=== PATIENT | female | born 1960 | race Caucasian/White ===

== ENCOUNTER 2020-03-10 15:36 | Emergency (ER) | payer MEDICARE, MEDICAID, SELFPAY ==
--- NOTE | ~2020-03-10 | XR_ITS ---
EXAMINATION: XR chest 2V DATE: 03/10/2020 16:35 INDICATION: Cough and shortness of breath. TECHNIQUE: Frontal and lateral views of the chest were obtained. COMPARISON: Chest 2 views 07/11/2018, chest CT 07/11/2018 FINDINGS: The chest demonstrates clear lungs without pneumonia, pleural effusion, or pneumothorax. Th e heart size is normal. IMPRESSION: 1. No acute cardiopulmonary disease. Reviewed, dictated and finalized at location A.
[2020-03-10 15:41] VITALS: BP 145/74; PULSE 77; RESP 20; TEMP 37.2; O2SAT 98
--- NOTE | 2020-03-10 15:48 | ECG_ITS ---
Measurements Intervals [place] Rate: 73 P: 17 WY: 163 QRS: -29 QRSD: 92 T: 0 QT: 394 QTc: 435 Interpretive Statements SINUS RHYTHM DELAYED PRECORDIAL R/S TRANSITION BORDERLINE ST-T WAVE ABNORMALITY- ANT/INF LEADS BORDERLINE ECG Electronically Signed On 03-10-2020 16:52:05 CDT by Crow Gonsales D.O.
[2020-03-10 16:11] LABS: Basophils Percent Auto 0.5 % (0.2-1.2); Eosinophils Absolute Auto 0.2 K/mm3 (0-0.3); Eosinophils Percent Auto 3.1 % (0-4.4); Hematocrit 43.3 % (37.0-47.0); Hemoglobin 15.1 g/dL (12.0-15.0); Immature Granulocyte Absolute 0.03 K/mm3 (0.00-0.031); Immature Granulocyte Percent A 0.4 % (0-0.5); Lymphocytes Absolute Auto 2.25 K/mm3 (0.9-3.2); Lymphocytes Percent Auto 30.2 % (18.3-44.2); Mean Corpuscular HGB Conc 34.9 g/dl (32-36); Mean Corpuscular Hemoglobin 31.9 pg (26-34); Mean Corpuscular Volume 91.4 fl (80-100); Mean Platelet Volume 10.5 fl (7.4-10.4); Monocytes Absolute Auto 0.5 K/mm3 (0.1-0.6); Monocytes Percent Auto 6.7 % (2.6-8.5); Neutrophils Absolute Auto 4.4 K/mm3 (1.3-6.7); Neutrophils Percent Auto 59.1 % (45.5-73.1); Platelet Count Result 226 k/mm3 (150-375); Red Blood Count 4.74 M/mm3 (4.2-5.4); Red Cell Distribution Width 12.5 % (11.5-14.5); White Blood Count 7.5 K/mm3 (4.5-10.0)
[2020-03-10 16:22] VITALS: BP 143/90; PULSE 74; RESP 20; O2SAT 97
[2020-03-10 16:23] LABS: Anion Gap 7 mmol/L (8-16); Blood Urea Nitrogen 17 mg/dL (7-17); Calcium 9.6 mg/dL (8.4-10.2); Carbon Dioxide 27 mmol/L (22-30); Chloride 102 mmol/L (98-107); Estimated CRCL calculation 88 ml/min; Estimated Glomerular Filt Rate > 60; Glucose 167 mg/dL (65-105); Potassium 4.2 mmol/L (3.4-5.0); Sodium 136 mmol/L (137-145)
[2020-03-10 16:24] VITALS: BP 140/90; PULSE 78; RESP 18; O2SAT 98
[2020-03-10] MEDS: IPRATROPIUM BR 0.02% INH SOLN 0.5 MG/2.5 ML VIAL 1 MG INHALATION (17:01)
[2020-03-10 17:02] VITALS: PULSE 66; RESP 16; O2SAT 97
[2020-03-10] MEDS: ALBUTEROL SULFATE NEB 2.5 MG/3 ML INH 5 MG INHALATION (17:02)
[2020-03-10] MEDS: AZITHROMYCIN 250 MG TABLET 500 MG PO (17:21)
--- NOTE | 2020-03-10 17:25 | PC.NURSE ---
Patient given decadron 10 mg IM verbal order Dr. Frederick at this time.
--- NOTE | 2020-03-10 17:58 | ED.SOB ---
HPI - SOB/Dyspnea General Chief Complaint: Shortness of Breath/Dyspnea Stated Complaint: cough, short of breath x 1 month Time Seen by Provider: 03/10/20 16:21 Related Data Allergies Allergy/AdvReac Type Severity Reaction Status Date / Time Benzodiazepines Allergy Mild RED FACE Verified 07/11/18 12:36 caffeine Allergy Mild RED FACE Verified 07/11/18 12:36 chlordiazepoxide Allergy Mild RED FACE Verified 07/11/18 12:36 clidinium Allergy Mild RED FACE Verified 07/11/18 12:36 diphenhydramine AdvReac Other Verified 03/10/20 16:29 [From Benadryl] CHLORDIAZEPOXIDE HCL Allergy Unknown Other Uncoded 03/10/20 16:29 Course Vital Signs Vital signs: Vital Signs Temperature 37.2 C 03/10/20 15:41 Pulse Rate 77 03/10/20 15:41 Respiratory Rate 20 03/10/20 15:41 Blood Pressure 145/74 H 03/10/20 15:41 Pulse Oximetry 98 03/10/20 15:41 Temperature 37.2 C 03/10/20 15:41 Pulse Rate 66 03/10/20 17:02 Respiratory Rate 16 03/10/20 17:02 Blood Pressure 140/90 03/10/20 16:24 Pulse Oximetry 97 03/10/20 17:02 MDM - SOB/Dyspnea Lab Data Result diagrams: 03/10/20 15:53 03/10/20 15:53 Labs: Lab Results 03/10/20 03/10/20 Range/Units 15:53 15:53 WBC 7.5 (4.5-10.0) K/mm3 RBC 4.74 (4.2-5.4) M/mm3 Hgb 15.1 H (12.0-15.0) g/dL Hct 43.3 (37.0-47.0) % MCV 91.4 (80-100) fl MCH 31.9 (26-34) pg MCHC 34.9 (32-36) g/dl RDW 12.5 (11.5-14.5) % Plt Count 226 (150-375) k/mm3 MPV 10.5 H (7.4-10.4) fl Immature Gran % (Auto) 0.4 (0-0.5) % Neut % (Auto) 59.1 (45.5-73.1) % Lymph % (Auto) 30.2 (18.3-44.2) % Clarke % (Auto) 6.7 (2.6-8.5) % Eos % (Auto) 3.1 (0-4.4) % Baso % (Auto) 0.5 (0.2-1.2) % Lymph # (Auto) 2.25 (0.9-3.2) K/mm3 Clarke # (Auto) 0.5 (0.1-0.6) K/mm3 Eos # (Auto) 0.2 (0-0.3) K/mm3 Baso # (Auto) 0.0 (0.0-0.1) K/mm3 Abs Immat Gran (auto) 0.03 (0.00-0.031) K/mm3 Absolute Neuts (auto) 4.4 (1.3-6.7) K/mm3 Absolute Nucleated RBC 0.0 (0.0-0.012) K/mm3 Nucleated RBC % 0.0 (0.0-0.2) % Sodium 136 L (137-145) mmol/L Potassium 4.2 (3.4-5.0) mmol/L Chloride 102 (98-107) mmol/L Carbon Dioxide 27 (22-30) mmol/L Anion Gap 7 L (8-16) mmol/L BUN 17 (7-17) mg/dL Creatinine 0.70 (0.7-1.0) mg/dL Estim Creat Clear Calc 88 ml/min Estimated GFR > 60 (59 - ) Glucose 167 H (65-105) mg/dL Calcium 9.6 (8.4-10.2) mg/dL Discharge Plan Discharge Clinical Impression: Bronchitis, COPD (chronic obstructive pulmonary disease) Patient Disposition: Home, Self-Care Condition: Stable Instructions: Antibiotic Form, COPD (Chronic Obstructive Pulmonary Disease) (ED), Chronic Bronchitis (ED) Prescriptions: New albuterol sulfate 90 mcg/actuation HFA aerosol inhaler 2 puff INHALATION QID PRN (Reason: shortness of breath or wheezing) Qty: 8.5 RF: 0 azithromycin 250 mg tablet See Rx Instructions .ROUTE .COMPLEX Qty: 6 RF: 0 prednisone 20 mg tablet 20 mg PO BID Qty: 10 RF: 0 Follow-up/Referrals: Danae Warren MD [Physician] - (if a primary care doctor is needed) PHYSICIAN NOT ON STAFF,NONSTAFF [Primary Care Provider] -
[2020-03-10 18:13] VITALS: PULSE 82; RESP 18
[2020-03-10 18:15] VITALS: BP 134/69; PULSE 76; RESP 16; O2SAT 98
== END 2020-03-10 18:18 | disposition home or self-care (01) ==
PROVIDERS: Emergency Medicine; Emergency Provider Emergency Medicine
DX: J40 Bronchitis, not specified as acute or chronic (principal); J44.9 Chronic obstructive pulmonary disease, unspecified
CPT/HCPCS: 36415; 71046; 80048; 85025; 93005; 96372; 99284; A9270

== ENCOUNTER 2020-04-05 16:40 | Emergency (ER) | payer MEDICARE, MEDICAID, SELFPAY ==
[2020-04-05 17:26] VITALS: BP 146/89; PULSE 76; RESP 18; TEMP 36.6; O2SAT 98
[2020-04-05 17:44] LABS: Basophils Absolute Auto 0.1 K/mm3 (0.0-0.1); Basophils Percent Auto 0.9 % (0.2-1.2); Eosinophils Absolute Auto 0.2 K/mm3 (0-0.3); Eosinophils Percent Auto 2.2 % (0-4.4); Hematocrit 41.4 % (37.0-47.0); Hemoglobin 14.4 g/dL (12.0-15.0); Immature Granulocyte Absolute 0.01 K/mm3 (0.00-0.031); Immature Granulocyte Percent A 0.1 % (0-0.5); Lymphocytes Absolute Auto 2.17 K/mm3 (0.9-3.2); Lymphocytes Percent Auto 32.3 % (18.3-44.2); Mean Corpuscular HGB Conc 34.8 g/dl (32-36); Mean Corpuscular Hemoglobin 32.8 pg (26-34); Mean Corpuscular Volume 94.3 fl (80-100); Mean Platelet Volume 10.4 fl (7.4-10.4); Monocytes Absolute Auto 0.4 K/mm3 (0.1-0.6); Monocytes Percent Auto 6.1 % (2.6-8.5); Neutrophils Absolute Auto 3.9 K/mm3 (1.3-6.7); Neutrophils Percent Auto 58.4 % (45.5-73.1); Platelet Count Result 200 k/mm3 (150-375); Red Blood Count 4.39 M/mm3 (4.2-5.4); Red Cell Distribution Width 12.7 % (11.5-14.5); White Blood Count 6.7 K/mm3 (4.5-10.0)
[2020-04-05 17:55] LABS: Alanine Aminotransferase 28 U/L (4-35); Albumin Level 3.8 g/dL (3.5-5.1); Alkaline Phosphatase 88 U/L (38-126); Anion Gap 8 mmol/L (8-16); Aspartate Amino Transferase 22 U/L (14-36); Bilirubin,Total 0.7 mg/dL (0.2-1.3); Blood Urea Nitrogen 17 mg/dL (7-17); Calcium 9.4 mg/dL (8.4-10.2); Carbon Dioxide 26 mmol/L (22-30); Chloride 102 mmol/L (98-107); Estimated CRCL calculation 85 ml/min; Estimated Glomerular Filt Rate > 60; Glucose 280 mg/dL (65-105); Lipase 178 U/L (23-300); Potassium 4.4 mmol/L (3.4-5.0); Sodium 136 mmol/L (137-145)
[2020-04-05 18:38] LABS: Add Urine Microscopic? YES; Appearance Urine Cloudy (Clear); Bilirubin Urine Negative (Negative); Blood Urine 2+ (Negative); Color Urine Yellow (Yellow); Glucose Urine UA 3+ mg/dL (Negative); Ketones Urine Negative (Negative); Leukocyte Esterase Ur 3+ LEU/UL (Negative); Nitrate Urine Negative (Negative); Protein Urine 1+ mg/dL (Negative); RBC Urine >75 /hpf (0-2); Specific Grav Ur 1.028 (1.001-1.035); Squamous Epithelial Cell Urine Few /hpf (Few); Urobilinogen Urine Negative mg/dL (<2.0); WBC Clumps Urine Present /HPF; WBC Urine >75 /hpf
--- NOTE | 2020-04-05 19:55 | ED.NAVMDI ---
HPI - Nausea/Vomiting/Diarrhea General Chief complaint: Nausea/Vomiting/Diarrhea Stated complaint: diarrhea Time Seen by Provider: 04/05/20 19:53 History of Present Illness HPI Narrative: 60 yo female presents to the ED from home with multiple complaints. The primary thing that motivated her to come in today is a bug bite to her upper chest that she recieved yesterday. Since that time swelling moved up the fron of her chest to her neck and she began to experience tightness in her throat. This has begun to decrease somewhat at this time. Additionally she reports diarrhea for the past week. No dark or bloddy stools, abdominal pain, nausea, fever. She also reports that she has an ankle wound that she sustained over 2 weeks ago, which she gfeels is getitng worse. Related Data Allergies Allergy/AdvReac Type Severity Reaction Status Date / Time Benzodiazepines Allergy Mild RED FACE Verified 07/11/18 12:36 caffeine Allergy Mild RED FACE Verified 07/11/18 12:36 chlordiazepoxide Allergy Mild RED FACE Verified 07/11/18 12:36 clidinium Allergy Mild RED FACE Verified 07/11/18 12:36 diphenhydramine AdvReac Other Verified 03/10/20 16:29 [From Benadryl] CHLORDIAZEPOXIDE HCL Allergy Unknown Other Uncoded 03/10/20 16:29 Review of Systems Review of Systems: All systems reviewed & are unremarkable except as noted in HPI and below Constitutional: Constitutional: Denies chills and Denies fever(s) ENT: Denies dizziness and Denies sore throat Cardiovascular: Cardiovascular: Denies chest pain Respiratory: Respiratory: Denies dyspnea Gastrointestinal: Gastrointestinal: Denies abdominal pain, Reports diarrhea, Denies nausea and Denies vomiting Genitourinary: Genitourinary: Denies dysuria Integumentary/Breasts: Skin/Breast: Reports rash and Reports skin ulcer Neurologic: Denies weakness PMFSH Past Medical History Medical History Diabetes mellitus Social History Social History Gender identity (if verbalized by the patient): Female Exam Const: General: no acute distress and alert Nutritional Appearance: obese Orientation/consciousness: patient oriented x3 HENMT: Head: normal to inspection Neck: Other: Mild erythema and indration extending from the upper chest to the level of the thyroid Chest: Chest palpation & inspection: no tenderness Other: erythema and induration of the upper chest with punctate wound Resp: Effort & Inspection: normal respiratory effort Auscultation: clear to auscultation bilaterally, no rales, no rhonchi and no wheezes Cardio: Jugular venous distension: no JVD Rate: regular rate Rhythm: regular rhythm Heart sounds: no murmurs GI: Inspection: non-distended GI Palp: Yes Soft to palpation and No Tenderness to palpation present (GI) Skin: Other: small ulcer to ankle with minimal surrounding erythema Neuro: General: patient oriented x3 and moves all extremities Speech: normal speech Extrem: General: no edema Psych: Appearance: well kempt Affect: normal affect Course Vital Signs Vital signs: Vital Signs Temperature 36.6 C 04/05/20 17:26 Pulse Rate 76 04/05/20 17:26 Respiratory Rate 18 04/05/20 17:26 Blood Pressure 146/89 H 04/05/20 17:26 Pulse Oximetry 98 04/05/20 17:26 Temperature 36.6 C 04/05/20 17:26 Pulse Rate 74 04/05/20 20:49 Respiratory Rate 18 04/05/20 20:49 Blood Pressure 147/81 H 04/05/20 20:49 Pulse Oximetry 97 04/05/20 20:49 MDM - Nausea/Vomiting/Diarrhea MDM Narrative Medical decision making narrative: She appears to have an allergic reaction to an insect bite or sting to the chest. I do not want to put her on steroids due to poorly controlled DM. Her symptoms are improving so I do not believe she is any danger at this time. . I will provide a short course of antihistamine. UA concerning for infection. She also has a nonhealing
[2020-04-05] MEDS: NITROFURANTOIN MONOHYD MACROCR 100 MG CAP PO (20:24)
[2020-04-05] MEDS: CEPHALEXIN 500 MG CAPSULE PO (20:24)
[2020-04-05] MEDS: LORATADINE 10 MG TABLET PO (20:25)
[2020-04-05] MEDS: LOPERAMIDE HCL 2 MG CAPSULE 4 MG PO (20:43)
[2020-04-05 20:49] VITALS: BP 147/81; PULSE 74; RESP 18; O2SAT 97
== END 2020-04-05 20:55 | disposition home or self-care (01) ==
PROVIDERS: General Practice; Emergency Provider Emergency Medicine
DX: T63.481A Toxic effect of venom of other arthropod, accidental (unintentional), initial encounter (principal); N39.0 Urinary tract infection, site not specified; S90.512A Abrasion, left ankle, initial encounter; R19.7 Diarrhea, unspecified; E11.9 Type 2 diabetes mellitus without complications; X58.XXXA Exposure to other specified factors, initial encounter
CPT/HCPCS: 36415; 80053; 81001; 83690; 85025; 87086; 87088; 99283; A9270

== ENCOUNTER 2020-08-18 10:48 | Emergency (ER) | payer MEDICARE, MEDICAID, SELFPAY ==
--- NOTE | ~2020-08-18 | XR_ITS ---
EXAMINATION: XR hand RT min 3V INDICATION: Right hand pain, initial encounter TECHNIQUE: Three views of the right hand are obtained. COMPARISON: None available FINDINGS: There is deformity of the second distal phalanx which has a chronic appearance. No definite acute osseous abnormality is identified. There is mild osteoarthritis in multiple interphalangeal mariluz ints. There is dorsal soft tissue swelling of the hand overlying the metacarpals. IMPRESSION: 1. No acute osseous abnormality. Deformity of the second distal phalanx likely reflects prior trauma. Clinically correlate. Reviewed, dictated and finalized at location A. IC WORKS INSPECTOR
--- NOTE | ~2020-08-18 | XR_ITS ---
EXAMINATION: XR ribs RT 2V w CXR 2V INDICATION: Right chest pain TECHNIQUE: Frontal and lateral views of the chest and 3 views of the right ribs were obtained. COMPARISON: 03/10/2020 FINDINGS: The lungs are free of acute opacities. There is no pleural effusion or pneumothorax. The ca rdiomediastinal silhouette is normal. There is mild thoracic spondylosis. There appear to be nondispl aced fractures at the lateral aspects of the right eighth and ninth ribs. IMPRESSION: 1. Possible nondisplaced fractures of the right eighth and ninth ribs. 2. No acute cardiopulmonary abnormality. Reviewed, dictated and finalized at location A. IFIED RESIDENTIAL MEDICATION AIDE
--- NOTE | ~2020-08-18 | XR_ITS ---
EXAMINATION: XR ankle RT min 3V INDICATION: Right ankle pain, initial encounter TECHNIQUE: Four views of the right ankle are obtained. COMPARISON: None available FINDINGS: There is soft tissue swelling of the ankle. Heterotopic ossification is seen medial to the lateral malleolus. Bone alignment is normal. No definite acute fracture is identified. A plantar calc aneal enthesophyte is noted. IMPRESSION: 1. Findings suggestive of prior injury to the lateral malleolus without evidence of acute injury. Reviewed, dictated and finalized at location A. PROCESS MILLER IMPRESSION: 1. Findings suggestive of prior injury to the lateral malleolus without evidenc e of acute injury.
[2020-08-18 10:51] VITALS: BP 140/49; PULSE 71; RESP 18; TEMP 36.7; O2SAT 98
--- NOTE | 2020-08-18 11:21 | ED.FALL ---
HPI - Fall General Chief Complaint: Fall Stated Complaint: right foot pain, right arm pain. fall Time Seen by Provider: 08/18/20 10:56 Source: patient Mode of arrival: ambulatory Limitations: no limitations History of Present Illness HPI Narrative: This is a 60-year-old female that presents the emergency department after a fall one week ago. Reports she slipped and fell on the ice. Reports landing on her right side. Reports pain in her right hand, right ribs, and right ankle. Pain is worse with movement and relieved with rest. Denies hitting her head, loss of consciousness, weakness, or numbness. Related Data Allergies Allergy/AdvReac Type Severity Reaction Status Date / Time Benzodiazepines Allergy Mild RED FACE Verified 08/18/20 11:02 caffeine Allergy Mild RED FACE Verified 08/18/20 11:02 chlordiazepoxide Allergy Mild RED FACE Verified 08/18/20 11:02 clidinium Allergy Mild RED FACE Verified 08/18/20 11:02 diphenhydramine AdvReac Other Verified 08/18/20 11:02 [From Benadryl] CHLORDIAZEPOXIDE HCL Allergy Unknown Other Uncoded 03/10/20 16:29 Review of Systems Review of Systems: Narrative: CONSTITUTIONAL: Denies fever CARDIOVASCULAR: Reports rib pain RESPIRATORY: Denies dyspnea. MUSCULOSKELETAL: Reports joint pain, and myalgia. NEUROLOGIC: Denies numbness, or weakness. All systems reviewed & are unremarkable except as noted in HPI and below PMFSH Past Medical History Medical History (Updated 08/18/20 @ 12:19 by Jessica Quiroga PA-C) Diabetes mellitus History of hypertension Social History Social History Gender identity (if verbalized by the patient): Female Exam Narrative: Exam Narrative: GENERAL: Well-appearing, well-nourished, and in no acute distress. HEAD: Normocephalic, atraumatic. EYES: PERRLA and EOMI. ENT: Nares clear, no rhinorrhea or epistaxis. Mucous membranes moist. Oropharynx without tonsillar hypertrophy exudate or other lesions. Bilateral TMs pearly sevilla non-bulging NECK: Supple. No adenopathy or masses. No midline cervical spine tenderness CHEST: Clear to auscultation. No respiratory distress. No wheezes rales or rhonchi. Tender to palpation of right lateral, lower chest wall HEART: Regular rate and rhythm. No murmur heard. Normal peripheral pulses. BACK: No midline thoracic or lumbar spine tenderness EXTREMITIES: Normal range of motion. No edema or obvious deformity. SKIN: Warm, dry, no rash. NEURO: No focal deficits. Alert and oriented x3. Cranial nerves II through XII grossly intact PSYCH: Normal mood and affect Course Vital Signs Vital signs: Vital Signs Temperature 98.1 F 08/18/20 10:51 Pulse Rate 71 08/18/20 10:51 Respiratory Rate 18 08/18/20 10:51 Blood Pressure 140/49 L 08/18/20 10:51 Pulse Oximetry 98 08/18/20 10:51 Temperature 98.1 F 08/18/20 10:51 Pulse Rate 71 08/18/20 10:51 Respiratory Rate 18 08/18/20 10:51 Blood Pressure 140/49 L 08/18/20 10:51 Pulse Oximetry 98 08/18/20 10:51 MDM - Fall MDM Narrative Medical decision making narrative: Patient presents the emergency department for right rib right hand, and right ankle pain after a fall a week ago. Patient is neurologically intact. Vitals stable. Right rib/chest x-ray shows nondisplaced fractures of the eighth and ninth ribs. Right hand and ankle x-rays show findings consistent with previous injuries. No acute osseous abnormalities. Patient was updated on case findings. Given incentive spirometer. Instructed on care of rib fracture. She is to follow-up with primary care doctor. She was given warnings to return to the ER Imaging Data Radiologist's impression: ITS Impressions Ribs w/Chest X-Ray 08/18/20 11:37 IMPRESSION: 1. Possible nondisplaced fractures of the right eighth and ninth ribs. 2. No acute cardiopulmonary abnormality. Hand X-Ray 08/18/20 11:44 IMPRESSION: 1. No acute osseous abnormality. Deformity
[2020-08-18] MEDS: IBUPROFEN 600 MG TABLET PO (11:37)
[2020-08-18 12:42] VITALS: BP 151/90; PULSE 60; RESP 18; TEMP 36.3; O2SAT 98
== END 2020-08-18 12:45 | disposition home or self-care (01) ==
PROVIDERS: Emergency Provider Emergency Medicine
DX: S22.41XA Multiple fractures of ribs, right side, initial encounter for closed fracture (principal); E11.9 Type 2 diabetes mellitus without complications; I10 Essential (primary) hypertension; R93.6 Abnormal findings on diagnostic imaging of limbs; W00.0XXA Fall on same level due to ice and snow, initial encounter
CPT/HCPCS: 71046; 71100; 73130; 73610; 99284; A9270

== ENCOUNTER 2020-11-11 20:43 | Emergency (ER) | payer MEDICARE, MEDICAID, SELFPAY ==
--- NOTE | ~2020-11-11 | CT_ITS ---
EXAMINATION: CT abdomen pelvis w con DATE: 11/11/2020 23:05 INDICATION: Abdominal pain. TECHNIQUE: Computed tomography (CT) of the abdomen and pelvis was performed with 100 mL Omnipaque 350 intravenous contrast. Automated exposure control and iterative reconstruction technique were employe d. The dose-length product was 1346.45 mGy-cm. COMPARISON: None. FINDINGS: The visualized portions of the lung bases demonstrate mild atelectasis. No pleural effusion . The heart size is normal. No pericardial effusion. There is a small sliding hiatal hernia. The live r, gallbladder, spleen, pancreas, adrenal glands, and right kidney are normal. There are peripelvic c ysts in left kidney measuring up to 2.5 cm. There is a 1.9 cm uterine fibroid. The endometrial comple x is thickened to 18 mm. There are no dilated loops of bowel. The appendix is normal. There is a smal l umbilical hernia containing fat. There are no pathologically enlarged lymph nodes. There is no free intraperitoneal fluid. There is moderate lumbar spondylosis. IMPRESSION: 1. Thickened endometrial complex suspicious for endometrial carcinoma. Biopsy is recommended. 2. Small sliding hiatal hernia. 3. Small umbilical hernia containing fat. Reviewed, dictated and finalized at location A. IMPRESSION: 1. Thickened endometrial complex suspicious for endometrial carcinoma. Biopsy i s recommended. 2. Small sliding hiatal hernia. 3. Small umbilical hernia containing fat.
[2020-11-11 21:06] VITALS: BP 135/76; PULSE 72; RESP 18; TEMP 36.2; O2SAT 99
[2020-11-11 21:40] LABS: Basophils Absolute Auto 0.1 K/mm3 (0.0-0.1); Basophils Percent Auto 0.5 % (0.2-1.2); Eosinophils Absolute Auto 0.2 K/mm3 (0-0.3); Eosinophils Percent Auto 1.9 % (0-4.4); Hematocrit 47.2 % (37.0-47.0); Immature Granulocyte Absolute 0.03 K/mm3 (0.00-0.031); Immature Granulocyte Percent A 0.3 % (0-0.5); Lymphocytes Percent Auto 30.6 % (18.3-44.2); Mean Corpuscular HGB Conc 33.9 g/dl (32-36); Mean Corpuscular Hemoglobin 32.1 pg (26-34); Mean Corpuscular Volume 94.8 fl (80-100); Mean Platelet Volume 10.4 fl (7.4-10.4); Monocytes Absolute Auto 0.7 K/mm3 (0.1-0.6); Monocytes Percent Auto 7.1 % (2.6-8.5); Neutrophils Absolute Auto 5.8 K/mm3 (1.3-6.7); Neutrophils Percent Auto 59.6 % (45.5-73.1); Platelet Count Result 240 k/mm3 (150-375); Red Blood Count 4.98 M/mm3 (4.2-5.4); Red Cell Distribution Width 12.3 % (11.5-14.5); White Blood Count 9.8 K/mm3 (4.5-10.0)
[2020-11-11 21:50] LABS: Alanine Aminotransferase 24 U/L (4-35); Albumin Level 4.6 g/dL (3.5-5.1); Alkaline Phosphatase 96 U/L (38-126); Anion Gap 7 mmol/L (8-16); Aspartate Amino Transferase 29 U/L (14-36); Bilirubin,Total 0.6 mg/dL (0.2-1.3); Blood Urea Nitrogen 22 mg/dL (7-17); Calcium 10.6 mg/dL (8.4-10.2); Carbon Dioxide 30 mmol/L (22-30); Chloride 101 mmol/L (98-107); Estimated CRCL calculation 84 ml/min; Estimated Glomerular Filt Rate > 60; Glucose 223 mg/dL (65-105); Lipase 163 U/L (23-300); Sodium 138 mmol/L (137-145)
[2020-11-11 21:51] LABS: Add Urine Microscopic? YES; Appearance Urine Cloudy (Clear); Bacteria Urine Trace /hpf; Bilirubin Urine Negative (Negative); Blood Urine 2+ (Negative); Color Urine Yellow (Yellow); Glucose Urine UA 1+ mg/dL (Negative); Ketones Urine Negative (Negative); Leukocyte Esterase Ur 3+ LEU/UL (Negative); Mucus Urine Rare /lpf; Nitrate Urine Negative (Negative); Protein Urine Negative (Negative); Specific Grav Ur 1.013 (1.001-1.035); Squamous Epithelial Cell Urine Moderate /hpf (Few); Urobilinogen Urine Negative mg/dL (<2.0); WBC Urine 31-50 /hpf
[2020-11-11] MEDS: SODIUM CHLORIDE 0.9% IV 1,000 ML 999 ML IV CONT (22:00)
[2020-11-11] MEDS: ONDANSETRON INJ 4 MG/2 ML VIAL IV PUSH (22:01)
--- NOTE | 2020-11-11 23:02 | PC.NURSE ---
Patient in CT.
[2020-11-11 23:31] VITALS: BP 143/76; PULSE 58; RESP 18; O2SAT 99
[2020-11-11] MEDS: MORPHINE SULFATE (*CRX) 4 MG/ML INJ IV PUSH (23:33)
--- NOTE | 2020-11-11 23:48 | ED.GENADULT ---
HPI - General Adult General Chief complaint: Abdominal Pain Stated complaint: abd pain Time Seen by Provider: 11/11/20 21:34 History of Present Illness HPI narrative: Patient is a 60-year-old female presents emerged part with chief complaint of abdominal pain. The patient reports she has discomfort in the suprapubic and right lower quadrant area. The patient states she is noticeably when she urinates has been some mucus and little bit of blood in her urine. Patient denies fever denies chills reports that she is had cramping throughout the abdomen as well. Related Data Allergies Allergy/AdvReac Type Severity Reaction Status Date / Time caffeine AdvReac Muscle Verified 11/11/20 21:10 Spasms Review of Systems Review of Systems: Narrative: A 10 system review of systems was completed on the patient and is negative except for what is stated in the HPI. Nursing and ancillary documentation was reviewed. [facility] Social History Social History Gender identity (if verbalized by the patient): Female Exam Narrative: Exam Narrative: GENERAL: Well-appearing, well-nourished, and in no acute distress. HEAD: Normocephalic, atraumatic. EYES: PERRLA and EOMI. ENT: Nares clear, no rhinorrhea or epistaxis. Mucous membranes moist. NECK: Supple. CHEST: Clear to auscultation. No respiratory distress. HEART: Regular rate and rhythm. No murmur heard. Normal peripheral pulses. ABDOMEN: Soft, nontender, nondistended, normal active bowel sounds. EXTREMITIES: Normal range of motion. No edema. SKIN: Warm, dry, no rash. NEURO: No focal deficits. Alert and oriented x3. PSYCH: Normal mood and affect. Course Course Emergency Course: CT scan of the abdomen pelvis showed no evidence of acute abnormality Vital Signs Vital signs: Vital Signs Temperature 36.2 C L 11/11/20 21:06 Pulse Rate 72 11/11/20 21:06 Respiratory Rate 18 11/11/20 21:06 Blood Pressure 135/76 11/11/20 21:06 Pulse Oximetry 99 11/11/20 21:06 Temperature 36.2 C L 11/11/20 21:06 Pulse Rate 58 L 11/11/20 23:31 Respiratory Rate 18 11/11/20 23:31 Blood Pressure 143/76 H 11/11/20 23:31 Pulse Oximetry 99 11/11/20 23:31 Medical Decision Making Vital Signs Vital Signs: Vital Signs Temperature 36.2 C L 11/11/20 21:06 Pulse Rate 72 11/11/20 21:06 Respiratory Rate 18 11/11/20 21:06 Blood Pressure 135/76 11/11/20 21:06 Pulse Oximetry 99 11/11/20 21:06 Temperature 36.2 C L 11/11/20 21:06 Pulse Rate 58 L 11/11/20 23:31 Respiratory Rate 18 11/11/20 23:31 Blood Pressure 143/76 H 11/11/20 23:31 Pulse Oximetry 99 11/11/20 23:31 Lab Data Result diagrams: 11/11/20 21:33 11/11/20 21:33 Labs: Lab Results 11/11/20 11/11/20 11/11/20 Range/Units 21:33 21:33 21:40 WBC 9.8 (4.5-10.0) K/mm3 RBC 4.98 (4.2-5.4) M/mm3 Hgb 16.0 H (12.0-15.0) g/dL Hct 47.2 H (37.0-47.0) % MCV 94.8 (80-100) fl MCH 32.1 (26-34) pg MCHC 33.9 (32-36) g/dl RDW 12.3 (11.5-14.5) % Plt Count 240 (150-375) k/mm3 MPV 10.4 (7.4-10.4) fl Immature Gran % (Auto) 0.3 (0-0.5) % Neut % (Auto) 59.6 (45.5-73.1) % Lymph % (Auto) 30.6 (18.3-44.2) % [place] % (Auto) 7.1 (2.6-8.5) % Eos % (Auto) 1.9 (0-4.4) % Baso % (Auto) 0.5 (0.2-1.2) % Lymph # (Auto) 3.00 (0.9-3.2) K/mm3 [place] # (Auto) 0.7 H (0.1-0.6) K/mm3 Eos # (Auto) 0.2 (0-0.3) K/mm3 Baso # (Auto) 0.1 (0.0-0.1) K/mm3 Abs Immat Gran (auto) 0.03 (0.00-0.031) K/mm3 Absolute Neuts (auto) 5.8 (1.3-6.7) K/mm3 Absolute Nucleated RBC 0.0 (0.0-0.012) K/mm3 Nucleated RBC % 0.0 (0.0-0.2) % Sodium 138 (137-145) mmol/L Potassium 5.0 (3.4-5.0) mmol/L Chloride 101 (98-107) mmol/L Carbon Dioxide 30 (22-30) mmol/L Anion Gap 7 L (8-16) mmol/L BUN 22 H (7-17) mg/dL Creatinine 0.
[2020-11-12 00:22] VITALS: BP 142/85; PULSE 69; RESP 18; O2SAT 97
== END 2020-11-12 00:32 | disposition home or self-care (01) ==
PROVIDERS: Emergency Provider Emergency Medicine; PCP Internal Medicine
DX: N39.0 Urinary tract infection, site not specified (principal)
CPT/HCPCS: 36415; 74177; 80053; 81001; 83690; 85025; 87086; 87088; 96361; 96374; 96375; 99284; J0696; J2270; J2405; J7030; Q9967